=== PATIENT | male | born 1970 | race African-American/Black ===

== ENCOUNTER 2024-11-14 16:01 | Outpatient (REF) | payer BC, SELFPAY ==
[2024-11-14 18:46] LABS: Hematocrit 44.7 % (42.0-52.0); Mean Corpuscular Volume 90.1 fL (80.0-98.0); Red Blood Count 4.96 X10*6/uL (4.60-5.80); SCAN SMEAR FLAG 1
[2024-11-14 18:48] LABS: Basophils Percent Auto 0.6 % (0-2); Eosinophils Absolute Auto 0.2 X10*3/uL (0.0-0.4); Eosinophils Percent Auto 3.1 % (0-4); Hemoglobin 14.5 g/dl (14.0-18.0); Imm Gran Abs Auto 0.01 X10*3/uL (0.00-0.03); Imm Gran Pct Auto 0.1 % (0.0-0.4); Lymphocytes Absolute Auto 2.8 X10*3/uL (1.2-4.9); Lymphocytes Percent Auto 39.2 % (20-40); MANUAL DIFF FLAG SCAN; Mean Corpuscular HGB Conc 32.4 g/dl (31.0-36.0); Mean Corpuscular Hemoglobin 29.2 pg (27.0-33.0); Monocytes Absolute Auto 0.6 X10*3/uL (0.1-1.2); Monocytes Percent Auto 8.6 % (2-11); Neutrophils Absolute Auto 3.4 x10*3/uL (2.0-8.3); Neutrophils Percent Auto 48.4 % (45-73); PLT CLUMP 1; Red Cell Distribution Width 14.1 % (11.0-16.0)
[2024-11-14 18:52] LABS: PLT ABN DIST 1
[2024-11-14 19:11] LABS: Alanine Aminotransferase 53 U/L (0-40); Albumin Level 4.5 g/dL (3.5-5.0); Alkaline Phosphatase 98 U/L (39-117); Anion Gap 13 (12-20); Aspartate Amino Transferase 29 U/L (5-37); Bilirubin Total 0.6 mg/dL (0.0-1.0); Blood Urea Nitrogen 19 mg/dL (9-16); Calcium 9.8 mg/dL (8.4-10.2); Carbon Dioxide 28 mmol/L (22-29); Chloride 106 mmol/L (96-108); Cholesterol 238 mg/dL (<200); Estimated Glomerular Filt Rate > 60; Glucose Random 78 mg/dL (60-115); HDL Cholesterol 44 mg/dL (>40); LDL Cholesterol Calculated 174 mg/dL (<100); Potassium 4.8 mmol/L (3.3-5.1); Sodium 142 mmol/L (135-145); Total Protein 8.3 g/dL (6.5-8.0); Triglycerides 100 mg/dL (<150)
[2024-11-14 19:26] LABS: TSH reflex Free T4 3.27 uIU/mL (0.32-4.0)
[2024-11-14 19:34] LABS: Platelet Count 122 X10*3/uL (160-400); SLIDE REVIEW VERIFIED; White Blood Count 7.1 X10*3/uL (4.8-10.8)
--- OUTSIDE RECORDS SUMMARY | 2024-11-14 19:57 | XMS_ITS | Encounter Summary ---
Author Organization [employer] Address [address] [facility] 7t [place] [address] Care Team Providers Care Automotive Engineer Name Role Phone Jose Manuel Miramontes MD Primary Care Provider [phone] Encounter Details Date Type Department Care Team (Late st Contact Info) Description 11/14/2024 Orders Only [facility] MED & PEDS [address] [place], [place] [phone] Jose Manuel Miramontes MD [address] [place] [address] Social History Tobacco Use Types Packs/Day Years Used Date Smoking Tobacco: Never Smokeless Tobacco: Never Alcohol Answer Date Recorded Q1: How often do you have a drink containing alc ohol? 2 11/14/2024 Q2: How many drinks containi ng alcohol do you have on a typical day when you are drinking? 0 11/14/2024 Q3: How often do you have six or more drinks on one occasion? 2 11/14/2024 Sex and Gender Information Value Date Recorded Sex Assigned at Male 09/20/2024 10:15 AM EST Legal Sex Male 10:14 AM EST Gender Identity Male 09/20/2024 10:15 AM EST Sexual Orientation Straight 09/20/2024 10 :15 AM EST documented as of this encounter Plan of Treatment Not on file documented as of this encounter Procedures Procedure Name Priority Date/Time Associated Diagnosis Comments SLIDE REVIEW Routine 11/14/2024 4:04 PM EST documented in this encounter Results * Slide Review (11/14/2024 4:04 PM EST) Slide Review VERIFIED [facility] 11/14/2024 4:04 PM EST 11/14/2024 6:22 PM EST Jose Manuel Miramontes MD LAB BLOOD ORDERABLES Final Result [facility] [address] [place] [phone] documented in this encounter Visit Diagnoses Not on filedocumented in this encounter Care Teams Automotive Engineer Relationship Specialty Start Date End Date Jose Manuel Miramontes MD [address] [place] [phone] PCP - General Internal Medicine 11/14/24 documented as of this encounter
--- OUTSIDE RECORDS SUMMARY | 2024-11-14 19:57 | XMS_ITS | Encounter Summary ---
Author Organization [employer] Address [address] [facility] 7t [place] [address] Care Team Providers Care Car Racer Name Role Phone Jose Manuel Miramontes MD Primary Care Provider [phone] Encounter Details Date Type Department Care Team (Latest Contact Info) Description 11/14/2024 Travel Social History Tobacco Use Types Packs/Day Years [...] on file documented as of this encounter Visit Diagnoses Not on filedocumented in this encounter Care Teams Car Racer Relationship Specialty Start Date End Date Jose Manuel Miramontes MD [address] [place] [phone] PCP - General Internal Medicine 11/14/24 documented as of this encounter
--- OUTSIDE RECORDS SUMMARY | 2024-11-14 19:57 | XMS_ITS | Clinical Summary ---
Author Organization [employer] Address [address] [facility] 7t [place] [address] Care Team Providers Care Carpet Installer Helper Name Role Phone Jose Manuel Miramontes MD Primary Care Provider Allergies No known active allergies Medications carbamide peroxide (Debrox) 6.5 % otic solutionIndicat ions:Impacted cerumen of right ear Administer 5-10 drops into affected ear(s) 2 times daily for 4 days. 30 mL 11/19/19 25 Active Active Problems Problem Noted Date Diagnosed Date Idiopathic thrombocytopenia 11/14/2024 Mild intermittent asthma without complication Encounters Date Type Department Care Team Description 11/14/2024 2:45 PM EST Office Visit [facility] [address] [place] [address] Jose Manuel Miramontes MD Overweight (BMI 25.0-29.9) (Primary Dx); Idiopathic thrombocytopenia (CMS/HCC); Colon cancer screening; Impacted cerumen of right ear; Mild intermittent asthma without complication 11/14/2024 Orders Only [facility] [address] [place] [address] Jose Manuel Miramontes MD 11/14/2024 Travel 11/13/2024 Telephone [facility] [address] [place] [address] Jose Manuel Miramontes MD Chart Prep 11/02/2024 Patient Outreach [facility] [address] [place] [address] Jose Manuel Miramontes MD Pre-visit Planning ([facility] unable to reach [facility] ) 09/20/2024 Travel from Last 3 Months Immunizations Name Administration Dates Next Due Influenza Injectable Quadriv alant Preservative Free IIV4 MDCK 07/08/2022,08/28/2021 Influenza, IIV3, injectable 08/30/2009 Tdap 08/28/2021,08/21/2008 Family History Medical History Relation Name Comments Febrile seizures Mother Crohn's disease Son Relation Name Status Comments Mother Son Social History Tobacco Use Types Packs/Day Years Used Date Smoking Tobacco: Never Smokeless Tobacco: Never Tobacco Cessation:Counseling Given: No Alcohol Answer Date Recorded Q1: How often [...] Orientation Straight 09/20/2024 10 :15 AM EST Last Filed Vital Signs Vital Sign Reading Time Taken Comments Blood Pressure 116/76 11/14/2024 2:58 PM EST Pulse 94 11/14/2024 2:58 PM EST Temperature 36.7 ??C (98 ??F) 11/14/2024 2:58 PM EST Respiratory Rate 20 11/14/2024 2:58 PM EST Oxygen Saturation 98% 11/14/2024 2:58 PM EST Inhaled Oxygen Concentration - - Weight 85.7 kg (189 lb) 11/14/2024 2:58 PM EST Height 172.7 cm (5' 8 ) 11/14/2024 2:58 PM EST Body Mass Index 28.74 11/14/2024 2:58 PM EST Plan of Treatment Health Maintenance Due Date Last Done Comments CT Colonography 1970 Colonoscopy 1970 Colorectal Cancer Screening 1970 Depression Screening 1970 FIT DNA/Cologuard 1970 FIT 1970 FOBT 1970 HIV Screening 1970 Lipid Panel 1970 11/14/2024 SDOH Screening 1970 Sigmoidoscopy 1970 Hepatitis C Screening 1988 Hepatitis B Vaccines (1 of 3 - 19+ 3-dose series) 1989 Pneumococcal Vaccine: 50+ Years (1 of 2 - PCV) 1989 Zoster Vaccines (1 of 2) 2020 COVID-19 Vaccine (5 - 2023- season) 2024 07/08/2022, 08/02/2021, 11/07/2020, Additional history exists Influenza Vaccine (#1) 2025 , 08/28/2021, 08/30/2009 Postponed from 05/14/2024 (Patient Refused) Alcohol/Substance Use Screening 11/14/2025 11/14/2024 Tobacco Screening 11/14/2025 11/14/2024 DTaP/Tdap/Td Vaccines (3 - Td or Tdap) 08/28/2031 08/28/2021, 08/21/2008 RSV Patients and Patients Aged 60 years or older (1 - 1-dose 75+ series) 2045 HIB Vaccines Aged Out No longer eligi ble based on patient's age to complete this topic HPV Vaccines Aged Out No longer eligi ble based on patient's age to complete this topic Hepatitis A Vaccines Aged Out No long er eligible based on patient's age to complete this topic IPV Vaccines Aged Out No longer eligi ble based on patient's age to complete this topic Meningococcal Vaccine Aged Out No estefani yodit eligible based on patient's age to complete this topic RSV under 20 months Aged Out No longe r eligible based on patient's age to complete this topic Rotavirus Vaccines Aged Out No longer eligible based on patient's age to complete this topic Procedures Procedure Name Priority Date/Time Associated Diagnosis Comments SLIDE REVIEW Routine 11/14/2024 4:04 PM EST TSH W/REFLEX TO FT4 Routine 11/14/2024 4 :04 PM EST Overweight (BMI 25.0-29.9) Idiopathic thrombocytopenia (CMS/HCC) LIPID PANEL, STANDARD Routine 11/14/2024 4:04 PM EST Overweight (BMI 25.0-29.9) Idiopathic thrombocytopenia (CMS/HCC) CBC WITH AUTO DIFFERENTIAL Routine 11/14/2024 4:04 PM EST Overweight (BMI 25.0-29.9) Idiopathic thrombocytopenia (CMS/HCC) COMPREHENSIVE METABOLIC PANEL Routine 11/14/2024 4:04 PM EST Overweight (BMI 25.0-29.9) Idiopathic thrombocytopenia (CMS/HCC) from Last 3 Months Results * Slide Review (11/14/2024 4:04 PM EST) Slide Review VERIFIED [facility] 11/14/2024 4:04 PM EST 11/14/2024 6:22 PM EST us Jose Manuel Miramontes MD LAB BLOOD ORDERABLES Final Result Performing Organization Address City/[facility]/ZIP Co de Phone Number [facility] [address] [place] [phone] * TSH W/Reflex to FT4 (11/14/2024 4:04 PM EST) Pathologist [facility] TSH reflex Free T4 3.27 0.32 - 4.0 uIU/mL [facility] Blood Venous blood specimen / Unknown 11/14/2024 4:04 PM EST 11/14/2024 6:22 PM EST us Jose Manuel Miramontes MD LAB BLOOD ORDERABLES Final Result Performing Organization Address City/[facility]/ZIP Co de Phone Number [facility] [address] [place] [phone] * (ABNORMAL) CBC auto differential (11/14/2024 4:04 PM EST) Pathologist [facility] White Blood Count 7.1 4.8 - 10.8 X10*3/uL [facility] Red Blood Count 4.96 4.60 - 5.80 X10*6/uL [facility] Hemoglobin 14.5 14.0 - 18.0 g/dl [facility] Hematocrit 44.7 42.0 - 52.0 % [facility] Mean Corpuscular Volume 90.1 80.0 - 98.[address] [facility] Mean Corpuscular Hemoglobin 29.2 27.0 - 33.[address] [facility] Mean Corpuscular HGB Conc 32.4 31.0 - 36.0 g/dl [facility] Red Cell Distribution Width 14.1 11.0 - 16.0 % [facility] Platelet Count 122(L) 160 - 400 X10*3/uL [facility] Mean Platelet Volume 14.0(H) 9.4 - 12.[address] [facility] Neutrophils Percent Auto 48.4 45 - 73 % [facility] Imm Gran Pct Auto 0.1 0.0 - 0.4 % [facility] Lymphocytes Percent Auto 39.2 20 - 40 % [facility] Monocytes Percent Auto 8.6 2 - 11 % [facility] Eosinophils Percent Auto 3.1 0 - 4 % [facility] Basophils Percent Auto 0.6 0 - 2 % [facility] NRBC Pct Auto 0.0 0.0 - 0.2 /100WBC [facility] Neutrophils Absolute Auto 3.4 2.0 - 8.3 x10*3/uL [facility] Imm Gran Abs Auto 0.01 0.00 - 0.03 X10*3/uL [facility] Lymphocytes Absolute Auto 2.8 1.2 - 4.9 X10*3/uL [facility] Monocytes Absolute Auto 0.6 0.1 - 1.2 X10*3/uL [facility] Eosinophils Absolute Auto 0.2 0.0 - 0.4 X10*3/uL [facility] Basophils Absolute Auto 0.0 0.0 - 0.2 X10*3/uL [facility] NRBC Abs Auto 0.000 0.0 - 0.012 X10*3/uL [facility] Blood Venous blood specimen / Unknown 11/14/2024 4:04 PM EST 11/14/2024 6:22 PM EST us Thevenin Beauzile MD LAB BLOOD ORDERABLES Edited Result - Final Performing Organization Address [facility]/ZIP Co de Phone Number [facility] [address] [place] [phone] * (ABNORMAL) Lipid Panel, Standard (11/14/2024 4:04 PM EST) Triglycerides 100 <150 mg/dL [facility] Comment:Desirable Triglyceri de: less than 150 mg/dLBorderline High Triglyceride 150-199 mg/dLHigh Triglyceride: 200-499 mg/dLVery High Triglyceride: greater than or equal to 5OO mg/dL Cholesterol 238(H) <200 mg/dL [facility] Comment:Desirable Cholestero l: less than 200 mg/dLBorderline High Cholesterol: 200-239 mg/dLHigh Cholesterol: greater than 239 mg/dL LDL Cholesterol Calculated 174(H) <100 mg/dL [facility] Comment:Desirable LDL: less than 100 mg/dLNear Optimal/Above Optimal LDL: 110- 129 mg/dLBorderline High LDL: 130-159 mg/dLHigh LDL: 160-189 mg/dLVery High LDL: greater than or equal to 190 mg/dL HDL Cholesterol 44 >40 mg/dL [facility] Comment:Desirable HDL: great er than 40 mg/dL Note: This HDL assay may give artificially low results in patients with liver disease. Blood Venous blood specimen / Unknown 11/14/2024 4:04 PM EST 11/14/2024 6:22 PM EST us Jose Manuel Miramontes MD LAB BLOOD ORDERABLES Final Result Performing Organization Address City/[facility]/ZIP Co de Phone Number [facility] [address] [place] [address] [phone] * (ABNORMAL) Comprehensive Metabolic Panel (11/14/2024 4:04 PM EST) Sodium 142 135 - 145 mmol/L [facility] Potassium 4.8 3.3 - 5.1 mmol/L [facility] Chloride 106 96 - 108 mmol/L [facility] Carbon Dioxide 28 22 - 29 mmol/L [facility] Anion Gap 13 12 - [address] [facility] Urea Nitrogen (BUN) 19(H) 9 - 16 mg/dL [facility] Creatinine, Serum 0.95 0.5 - 1.4 mg/dL [facility] Estimated Glomerular Filt Rate >[address] [facility] Comment:Chronic Kidney Disea se: Estimated GFR < 60 mL/min/[id number] Kidney Disease: Estimated GFR < 15 mL/min/1.73m2 Glucose 78 60 - 115 mg/dL [facility] Calcium 9.8 8.4 - 10.2 mg/dL [facility] Bilirubin, Total 0.6 0.0 - 1.0 mg/dL [facility] Aspartate Amino Transferase 29 5 - 37 U/L [facility] Alanine Aminotransferase 53(H) 0 - 40 U/L [facility] Total Protein 8.3(H) 6.5 - 8.0 g/dL [facility] Albumin Level 4.5 3.5 - 5.0 g/dL [facility] Alkaline Phosphatase 98 39 - 117 U/L [facility] Blood Venous blood specimen / Unknown 11/14/2024 4:04 PM EST 11/14/2024 6:22 PM EST us Jose Manuel Miramontes MD LAB BLOOD ORDERABLES Final Result Performing Organization Address City/State/[facility] Co de Phone Number [facility] [address] [place] [phone] from Last 3 Months Insurance [facility] HMO Care Teams Carpet Installer Helper Relationship Specialty Start Date End Date Jose Manuel Miramontes MD [address] [place] [phone] PCP - General Internal Medicine 11/14/24
--- OUTSIDE RECORDS SUMMARY | 2024-11-14 19:57 | XMS_ITS | Encounter Summary ---
Author Organization [email or web address] Address [address] [facility] 7 [place] [address] Care Team Providers Care Sand Mixer Operator Name Role Phone Unavailable Primary Care Provider Unavailabl e Reason for Visit * Reason Comments Pre-visit Planning SDOH unable to reach LVM Encounter Details Date Type Department Care Team (Late st Contact Info) Description 11/02/2024 Patient Outreach [facility] MED & PEDS [address] [place], [place] [phone] Jose Manuel Miramontes MD [address] [place] [address] Pre-visit Planning (SDOH unable to reach LVM ) Social History Tobacco Use Types Packs/Day Years Used Date Smoking Tobacco: Never Assessed Sex and Gender Information Value Date Recorded Sex Assigned at Male 09/20/2024 10:15 AM EST Legal Sex Male 10:14 AM EST Gender Identity Male 09/20/2024 10:15 AM EST Sexual Orientation Straight 09/20/2024 10 :15 AM EST documented as of this encounter Progress Notes * Clarissa Barrett - 11/02/2024 3:56 PM EST CHARLA Wood placed outbound call to patient to complete pre-visit planning. No answer at this time. Patient name and were not confirmed. CC left voicemail requesting return call. Direct contactinformation provided. documented in this encounter Plan of Treatment Not on file documented as of this encounter Visit Diagnoses Not on filedocumented in this encounter
--- OUTSIDE RECORDS SUMMARY | 2024-11-14 19:57 | XMS_ITS | Encounter Summary ---
Author Organization [employer] Address [address] [facility] 7 [place] [address] Care Team Providers Care Cap Coverer Name Role Phone Unavailable Primary Care Provider Unavailabl e Reason for Visit * Reason Onset Date Comments Chart Prep 11/13/2024 Encounter Details Date Type Department Care Team ([facility] st Contact Info) Description 11/13/2024 Telephone C [facility] [address] [place], [place] [phone] Jose Manuel Miramontes MD [address] [place] [address] Chart Prep Social History Tobacco Use Types Packs/Day Years Used Date Smoking Tobacco: Never Assessed Alcohol Answer Date Recorded Q1: How often [...] AM EST documented as of this encounter Miscellaneous Notes * Telephone Encounter - Jennifer Rodriguez MA - 11/13/2024 11:54 AM EST Chart Prep Labs: not applicable Images: not applicable Vaccines due: yes Referrals: n/a Screenings: colonoscopy , STI screening Overdue care gaps: Sbirt, SDOH, PHQ-9, Oral Health documented in this encounter Plan of Treatment Not on file documented as of this encounter Visit Diagnoses Not on filedocumented in this encounter
--- OUTSIDE RECORDS SUMMARY | 2024-11-14 19:57 | XMS_ITS | Encounter Summary ---
Author Organization [employer] Address [address] [facility] [address] [place] [address] Care Team Providers Care Fbi Profiler Name Role Phone Jose Manuel Miramontes MD Primary Care Provider [phone] Reason for Visit * Reason Comments Establish Care Encounter Details Date Type Department Care Team (Latest Contact Info) Description 11/14/2024 2:45 PM EST Office Visit [facility] [address], [place] [phone] Jose Manuel Miramontes MD [address] [place] [address] Overweight (BMI 25.0-29.9) (Primary Dx); Idiopathic thrombocytopenia (CMS/HCC); Colon cancer screening; Impacted cerumen of right ear; Mild intermittent asthma without complication Social History Tobacco Use Types Packs/Day Years [...] AM EST documented as of this encounter Last Filed Vital Signs Vital Sign Reading [...] Mass Index 28.74 11/14/2024 2:58 PM EST documented in this encounter Plan of Treatment Scheduled Orders Name Type Priority Associated Diagnoses Orde r Schedule Hepatitis C Antibody with Reflex to HCV, RNA, Quantitative, Real-Time PCR Lab Routine Overweight (BMI 25.0-29.9) Idiopathic thrombocytopenia (CMS/HCC) Expected: 11/14/2024, Expires: 11/14/2025 HIV-1/2 Antigen and Antibodies, Fourth Generation, with Reflexes Lab Routine Overweight (BMI 25.0-29.9) Idiopathic thrombocytopenia (CMS/HCC) Expected: 11/14/2024 (Approximate), Expires: 11/14/2025 T-SPOT??.TB Lab Routine Overweight (BMI 25.0-29.9) Idiopathic thrombocytopenia (CMS/HCC) Expected: 11/14/2024 (Approximate), Expires: 11/14/2025 Cologuard?? colon cancer screening Lab Routine Colon cancer screening Expected: 11/14/2024 (Approximate), Expires: 11/14/2025 documented as of this encounter Procedures Procedure Name Priority Date/Time Associated Diagnosis Comments TSH W/REFLEX TO FT4 Routine 11/14/2024 4 :04 PM EST Overweight (BMI 25.0-29.9) Idiopathic thrombocytopenia (CMS/HCC) CBC WITH AUTO DIFFERENTIAL Routine 11/14/2024 4:04 PM EST Overweight (BMI 25.0-29.9) Idiopathic thrombocytopenia (CMS/HCC) LIPID PANEL, STANDARD Routine 11/14/2024 4:04 PM EST Overweight (BMI 25.0-29.9) Idiopathic thrombocytopenia (CMS/HCC) COMPREHENSIVE METABOLIC PANEL Routine 11/14/2024 4:04 PM EST Overweight (BMI 25.0-29.9) Idiopathic thrombocytopenia (CMS/HCC) documented in this encounter Results * TSH W/Reflex to FT4 (11/14/2024 4:04 PM EST) TSH reflex Free T4 3.27 0.32 - 4.0 uIU/mL [facility] Blood Venous blood specimen / Unknown 11/14/2024 4:04 PM EST 11/14/2024 6:22 PM EST us Jose Manuel Miramontes MD LAB BLOOD ORDERABLES Final Result [facility] [address] [place] [phone] * (ABNORMAL) Lipid Panel, Standard (11/14/2024 4:04 PM EST) Triglycerides 100 <150 mg/dL [facility] Comment:Desirable Triglyceri de: less than 150 mg/dLBorderline High Triglyceride 150-199 mg/dLHigh Triglyceride: 200-499 mg/dLVery High Triglyceride: greater than or equal to 5OO mg/dL Cholesterol 238(H) <200 mg/dL [facility] Comment:Desirable Cholestero l: less than 200 mg/dLBorderline High Cholesterol: 200-239 mg/dLHigh Cholesterol: greater than 239 mg/dL LDL Cholesterol Calculated 174(H) <100 mg/dL [facility] Comment:Desirable LDL: less than 100 mg/dLNear Optimal/Above Optimal LDL: 110- 129 mg/dLBorderline High LDL: 130-159 mg/dLHigh LDL: 160-189 mg/dLVery High LDL: greater than or equal to 190 mg/dL HDL Cholesterol 44 >40 mg/dL [facility] Comment:Desirable HDL: great er than 40 mg/dL Note: This HDL assay may give artificially low results in patients with liver disease. Blood Venous blood specimen / Unknown 11/14/2024 4:04 PM EST 11/14/2024 6:22 PM EST us Jose Manuel Miramontes MD LAB BLOOD ORDERABLES Final Result [facility] [address], [place] [phone] * (ABNORMAL) CBC auto differential (11/14/2024 4:04 PM EST) White Blood Count 7.1 4.8 - 10.8 X10*3/uL [facility] Red Blood Count 4.96 4.60 - 5.80 X10*6/uL [facility] Hemoglobin 14.5 14.0 - 18.0 g/dl [facility] Hematocrit 44.7 42.0 - 52.0 % [facility] Mean Corpuscular Volume 90.1 80.0 - 98.0 fL [facility] Mean Corpuscular Hemoglobin 29.2 27.0 - 33.0 pg [facility] Mean Corpuscular HGB Conc 32.4 31.0 - 36.0 g/dl [facility] Red Cell Distribution Width 14.1 11.0 - 16.0 % [facility] Platelet Count 122(L) 160 - 400 X10*3/uL [facility] Mean Platelet Volume 14.0(H) 9.4 - 12.4 fL [facility] Neutrophils Percent Auto 48.4 45 - 73 % [facility] Imm Gran Pct Auto 0.1 0.0 - 0.4 % [facility] Lymphocytes Percent Auto 39.2 20 - 40 % [facility] Monocytes Percent Auto 8.6 2 - 11 % [facility] Eosinophils Percent Auto 3.1 0 - 4 % [facility] Basophils Percent Auto 0.6 0 - 2 % [facility] NRBC Pct Auto 0.0 0.0 - 0.2 /100WBC [facility] Neutrophils Absolute Auto 3.4 2.0 - 8.3 x10*3/uL [facility] Imm Gran Abs Auto 0.01 0.00 - 0.03 X10*3/uL [facility] Lymphocytes Absolute Auto 2.8 1.2 - 4.9 X10*3/uL [facility] Monocytes Absolute Auto 0.6 0.1 - 1.2 X10*3/uL [facility] Eosinophils Absolute Auto 0.2 0.0 - 0.4 X10*3/uL [facility] Basophils Absolute Auto 0.0 0.0 - 0.2 X10*3/uL [facility] NRBC Abs Auto 0.000 0.0 - 0.012 X10*3/uL [facility] Blood Venous blood specimen / Unknown 11/14/2024 4:04 PM EST 11/14/2024 6:22 PM EST us Jose Manuel Miramontes MD LAB BLOOD ORDERABLES Edited Result - Final [facility] [address] [place] [phone] * (ABNORMAL) Comprehensive Metabolic Panel (11/14/2024 4:04 PM EST) Sodium 142 135 - 145 mmol/L [facility] Potassium 4.8 3.3 - 5.1 mmol/L [facility] Chloride 106 96 - 108 mmol/L [facility] Carbon Dioxide 28 22 - 29 mmol/L [facility] Anion Gap 13 12 - 20 [facility] Urea Nitrogen (BUN) 19(H) 9 - 16 mg/dL [facility] Creatinine, Serum 0.95 0.5 - 1.4 mg/dL [facility] Estimated Glomerular Filt Rate >60 [facility] Comment:Chronic Kidney Disea se: Estimated GFR < 60 mL/min/1.69b5Yejozd Kidney Disease: Estimated GFR < 15 mL/min/1.73m2 Glucose 78 60 - 115 mg/dL [facility] Calcium 9.8 8.4 - 10.2 mg/dL [facility] Bilirubin, Total 0.6 0.0 - 1.0 mg/dL [facility] Aspartate Amino Transferase 29 5 - 37 U/L [facility] Alanine Aminotransferase 53(H) 0 - 40 U/L [facility] Total Protein 8.3(H) 6.5 - 8.0 g/dL [facility] Albumin Level 4.5 3.5 - 5.0 g/dL [facility] Alkaline Phosphatase 98 39 - 117 U/L [facility] Blood Venous blood specimen / Unknown 11/14/2024 4:04 PM EST 11/14/2024 6:22 PM EST Jose Manuel Miramontes MD LAB BLOOD ORDERABLES Final Result [facility] [address] [place] [phone] documented in this encounter Visit Diagnoses Diagnosis Overweight (BMI 25.0-29.9)- Primary Overweight Idiopathic thrombocytopenia (CMS/HCC) Immune thrombocytopenic purpura Colon cancer screening Special screening for malignant neoplasms, colon Impacted cerumen of right ear Impacted cerumen Mild intermittent asthma without complication documented in this encounter Care Teams Fbi Profiler Relationship Specialty Start Date End Date Jose Manuel Miramontes MD [address] [place] [phone] PCP - General Internal Medicine 11/14/24 documented as of this encounter
[2024-11-15 08:10] LABS: HIV AB/AG Nonreactive (Nonreactive); HIV Num 1 0.04 S/CO (0.00-0.99); ~HepC Num1 0.16 S/CO (0.00-0.79); ~Hepatitis C Antibody Nonreactive (Nonreactive)
[2024-11-17 11:49] LABS: TS Negative Control Passed; TS Panel A 2; TS Panel B 0; TS Positive Control Passed; TSpotTB Negative (Negative)
== END 2024-11-14 16:02 | disposition home or self-care (01) ==
LOC: HO.CHCLDS 16:01
PROVIDERS: Visit Provider Internal Medicine
DX: E66.3 Overweight (principal); D69.3 Immune thrombocytopenic purpura
CPT/HCPCS: 36415; 80053; 80061; 84443; 85025; 86481; 86803; 87389